=== PATIENT | male | born 1960 | race Caucasian/White ===

== ENCOUNTER 2017-12-15 19:40 | Emergency (ER) | payer OTHER ==
[2017-12-15 19:49] VITALS: BP 144/97
== END 2017-12-15 19:55 | disposition left against medical advice (07) ==
LOC: ED 19:40
DX: M79.641 Pain in right hand (principal)

== ENCOUNTER 2018-06-03 04:14 | Emergency (ER) | payer OTHER ==
[2018-06-03] MEDS ORDERED: fentaNYL* 50 MCG/ML 2 ML VIAL (100 MCG VIAL) IV ONE (04:28)
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
[2018-06-03 04:48] LABS: ABS Basophils 0.1 10^3/ul (0-0.2); ABS Eosinophils 0.1 10^3/ul (0-0.6); ABS Lymphocytes 0.9 10^3/ul (1.0-4.8); ABS Monocytes 0.7 10^3/ul (0-0.8); ABS Neutrophils 11.3 10^3/ul (1.5-7.7); ABS Nucleated RBC 0 10^3/ul; Eosinophil % 0.7 % (0-6); Hematocrit 40 % (42-52); Lymphocyte % 6.9 % (25-47); Mean Corpuscular HGB Conc 35 g/dl (31-36); Mean Corpuscular Hemoglobin 32 pg (27-31); Mean Corpuscular Volume 92 fL (80-94); Mean Platelet Volume 6.4 um3 (7.4-10.4); Nucleated Red Blood Cells % 0; Platelet Count 265 10^3/ul (150-450); Red Blood Count 4.39 10^6/ul (4.00-5.40); Red Cell Distribution Width 13 % (10.5-15); White Blood Count 13.1 10^3/ul (3.5-10.8)
[2018-06-03] MEDS ORDERED: fentaNYL* 50 MCG/ML 2 ML VIAL (100 MCG VIAL) IV SLOW PU ONE (05:38)
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
[2018-06-03] MEDS ORDERED: Piperacillin/Tazobac ADVAN(*) 3.375 GM in NS 0.9% 100 ML* 100 ML IVPB ONE (05:46)
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
[2018-06-03 07:18] VITALS: BP 118/74
== END 2018-06-03 07:18 | disposition short-term general hospital (02) ==
LOC: ED 04:14
DX: S02.81XA Fracture of other specified skull and facial bones, right side, initial encounter for closed fracture (principal); S00.93XA Contusion of unspecified part of head, initial encounter; R60.0 Localized edema; Y09 Assault by unspecified means; Y92.9 Unspecified place or not applicable
CPT/HCPCS: 36415; 70450; 70486; 72125; 80053; 80320; 85025; 96374; 96375; 99285; G0480; J2543; J3010